=== PATIENT | female | born 1950 | race African-American/Black ===

== ENCOUNTER 2016-11-10 10:34 | Emergency (ER) | payer OTHER ==
[~2016-11-10] VITALS: Ht 162.6 cm; Wt 57.3 kg
[~2016-11-10 10:34] MED LIST: AMLODIPINE BESYL5 MG PO; ASPIR-LOW81 MG PO; BACLOFEN10 MG PO; CHOLESTYRAMINE P4 GM PO; DOCUSATE SODIU100 MG PO; LIPITOR10 MG PO; LISINOPRIL5 MG PO; NICOTINE PATCH1 EAC2 TD; NORVASC5 MG PO; SENNA-TIME S T1 EACH PO
[2016-11-10] MEDS ORDERED: BRILINTA90 MG PO (12:13)
[2016-11-10] MEDS ORDERED: LOPRESSOR50 MG PO (12:14)
[2016-11-10] MEDS ORDERED: PRAVASTATIN SOD80 MG PO (12:14)
[2016-11-10] MEDS ORDERED: LISINOPRIL20 MG PO (12:14)
[2016-11-10] MEDS ORDERED: ASPIR 8181 M1 PO (12:15)
[2016-11-10 13:15] VITALS: BP 156/74
== END 2016-11-10 13:15 | disposition home or self-care (01) ==
LOC: EME 10:34
DX: S70.01XA Contusion of right hip, initial encounter (principal); S93.401A Sprain of unspecified ligament of right ankle, initial encounter; W01.0XXA Fall on same level from slipping, tripping and stumbling without subsequent striking against object, initial encounter; E78.5 Hyperlipidemia, unspecified; I10 Essential (primary) hypertension; Z87.891 Personal history of nicotine dependence; Z95.828 Presence of other vascular implants and grafts
CPT/HCPCS: 73502; 73610; 99281; 99284